=== PATIENT | male | born 1980 ===

== ENCOUNTER 2021-10-21 09:36 | Day surgery (SDC) | payer MEDICAID ==
[~2021-10-21 09:36] MED LIST: DEXAMETHASONE SOD PHOSPHATE 4 MG/ML 1 ML VIAL IV ONE; HEPARIN SODIUM,PORCINE/PF 5,000 UNIT/0.5 ML SYRINGE SQ PRN; HYDROmorphone 0.5 MG/0.5 ML SYRINGE IVP PRN; LACTATED RINGERS 1,000 ML IV SCH; MIDAZOLAM 2 MG/2 ML VIAL IV PRN; ONDANSETRON 4 MG/2 ML VIAL IVP ONE; SCOPOLAMINE 1 MG/72 HR PATCH TRANSDERM ONE
[2021-10-21] MEDS ORDERED: ROCURONIUM 10 MG/ML (5 ML VIAL) IV ONE (11:25)
[2021-10-21] MEDS ORDERED: PROPOFOL 10 MG/ML 20 ML VIAL IV ONE (11:25)
[2021-10-21] MEDS ORDERED: HYDROmorphone (PF) 1 MG/ML ONE (11:25)
[2021-10-21] MEDS ORDERED: fentaNYL (PF) 50 MCG/ML 2 ML AMP ONE (11:25)
[2021-10-21] MEDS ORDERED: LIDOCAINE 2% INJ 20 MG/ML (2 ML VIAL) ONE (11:25)
[2021-10-21] MEDS ORDERED: NEOSTIGMINE 1 MG/ML 10 ML VIAL ONE (11:25)
[2021-10-21] MEDS ORDERED: GLYCOPYRROLATE 0.2 MG/ML 2 ML VIAL ONE (11:25)
[2021-10-21] MEDS ORDERED: MIDAZOLAM 2 MG/2 ML VIAL ONE (11:25)
[2021-10-21] MEDS ORDERED: SUCCINYLCHOLINE CHLORIDE 200 MG/10 ML VIAL IV ONE (11:25)
[2021-10-21] MEDS ORDERED: BUPIVACAIN-EPI 0.25%-1:200,000 30 ML VIAL SQ ONE (11:59)
[2021-10-21] MEDS ORDERED: LACTATED RINGERS 1,000 ML IV ONE (12:47)
--- NOTE | 2021-10-21 13:00 | P.OP ---
Date of Procedure: 10/21/21 Preoperative Diagnosis: Left inguinal hernia Postoperative Diagnosis: Left inguinal indirect hernia Procedure(s) Performed: Robotic left inguinal hernia repair with mesh placement Anesthesia: KELLY Surgeon: Anna Marie Del Rosario Pathology: none sent Condition: stable Disposition: same day Indications for Procedure: 41-year-old male presented to the surgery clinic with complaints of a bulge in the left groin. On exam, he was found to have a left inguinal hernia. Secondary to symptoms, plan is for repair. Risks, alternatives and benefits were provided to the patient. He did provide consent prior to attending the operating suite. Operative Findings: Left inguinal indirect hernia Description of Procedure: Patient was brought back to the operating suite and placed in supine position. After general endotracheal anesthesia was induced, arms were tucked to the sides bilaterally and all pressure points were padded. SCDs were also placed in his bilateral lower extremities and working throughout the entire case. Preoperative antibiotics were given prior to the incision. A timeout was performed with all team members in agreement with correct patient, procedure and location. A supraumbilical incision was made approximately 20 cm superior to the pubic symphysis. The abdomen was then entered after dissection was carried to the fascia and the fascia was incised. At this point pneumoperitoneum was achieved after a millimeter trocar was placed. 2 additional incisions were made approximately 11 7 m lateral to the supraumbilical incision and a millimeter trochars were placed. The patient was then placed in Trendelenburg position and the hernia site was clearly visualized on the left side. This was noted as an indirect inguinal hernia. The robot was then docked appropriately. Incision was then made just lateral to the medial umbilical ligament on the side with the monopolar scissors and the peritoneal flap was created and was taken down towards Jignesh's ligament. The flap was then extended laterally. Attention was then turned to the indirect inguinal hernia. The sac was then freed from the cord all while preserving the cord structures. At this point, the indirect hernia was reduced. Once the entire space was appropriately dissected, we brought the laparoscopic anatomic parietex progrip mesh and unrolled over the hernia site. Once appropriately in place, the peritoneal flap was closed using a running 20V lock suture. Once this was completed, we removed all the robotic instruments and undocked the robot. The super umbilical fascial incision was closed with an 0 Vicryl suture using a Elmer-Jovana device. This was done under laparoscopic guidance. All skin incisions were then closed with 4-0 Vicryl suture. The patient was awakened in the operating suite and taken to postanesthesia care unit in stable condition. Sponge and instrument count were correct 2 at the end of the case.
[2021-10-21 13:03] VITALS: TEMP 96.9
[2021-10-21] MEDS ORDERED: KETOROLAC 15 MG/ML 1 ML VIAL IVP ONE (13:07)
[2021-10-21 13:32] VITALS: RESP 18
[2021-10-21 14:20] VITALS: BP 137/78; PULSE 78
== END 2021-10-21 14:21 | disposition home or self-care (01) ==
LOC: OR 09:36
PROVIDERS: ATTEND Surgery
DX: K40.90 Unilateral inguinal hernia, without obstruction or gangrene, not specified as recurrent (principal); Z87.891 Personal history of nicotine dependence; Z68.22 Body mass index [BMI] 22.0-22.9, adult; F12.90 Cannabis use, unspecified, uncomplicated; Z79.899 Other long term (current) drug therapy; E66.9 Obesity, unspecified
CPT/HCPCS: 49650; C1781; J2250; J0330; J1100; J2710; J0690; J2405; J3010; J1170 ×2; J1885; J2704; J1644; J2001